=== PATIENT | female | born 1950 | race Two or more races ===

== ENCOUNTER 2025-08-31 12:19 | Emergency (ER) | payer OTHER ==
[~2025-08-31] VITALS: Ht 152.4 cm; Wt 51.3 kg
[2025-08-31 13:48] VITALS: BP 128/78; TEMP 98.2; O2SAT 97
== END 2025-08-31 13:49 | disposition left against medical advice (07) ==
LOC: ER 12:29
DX: M79.602 Pain in left arm (principal)